=== PATIENT | male | born 1985 | race Caucasian/White ===

== ENCOUNTER 2023-02-10 09:45 | Emergency (ER) | payer OTHER ==
[~2023-02-10] VITALS: Ht 180.3 cm; Wt 145.1 kg
[2023-02-10] MEDS ORDERED: IBUPROFEN 800 MG TABLET PO ONE (10:15)
[2023-02-10] MEDS ORDERED: IBUPROFEN 400 MG TABLET ONE (10:40)
== END 2023-02-10 13:16 | disposition home or self-care (01) ==
LOC: ER 09:45
DX: B34.9 Viral infection, unspecified (principal); Z20.822 Contact with and (suspected) exposure to COVID-19
CPT/HCPCS: 86403; A4663